=== PATIENT | female | born 1960 | race African-American/Black ===

== ENCOUNTER 2020-02-22 17:33 | Emergency (ER) | payer MEDICARE, OTHER ==
[~2020-02-22] VITALS: Ht 160 cm; Wt 58.1 kg
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
--- NOTE | 2020-02-22 18:30 | NUR ---
xray at bedside
--- NOTE | 2020-02-22 18:58 | NUR ---
Urine collected via straight catheter using sterile technique, urine sent to lab. Patient refusing blood draw at this time. Dr. Zendejas made aware.
[2020-02-22 19:26] LABS: APPEARANCE,URINE Clear (CLEAR); BILIRUBIN,URINE Negative (NEGATIVE); BLOOD, URINE Trace-lysed Ery/uL (NEGATIVE); COLOR,URINE Yellow (YELLOW); KETONES,URINE Negative (NEGATIVE); LEUKOCYTE ESTERASE ,URINE Small (NEGATIVE); NITRITE, URINE Negative (NEGATIVE); PROTEIN,URINE Negative (NEGATIVE); UGLUCOSE Negative (NEGATIVE); UROBILINOGEN,URINE 0.2 EU/dL (0.2)
[2020-02-22 19:27] LABS: BACTERIA,URINE Few /HPF (None Seen)
[2020-02-22 19:28] LABS: SQUAMOUS EPITHELIAL CELL,UR Moderate /HPF (None Seen)
[2020-02-22] MEDS ORDERED: NITROFURANTOIN/NITROFURAN MAC 100 MG CAPSULE PO ONE (20:30)
[2020-02-22] MEDS ORDERED: NITROFURANTOIN/NITROFURAN MAC 100 MG CAPSULE ONE (20:55)
--- NOTE | 2020-02-22 21:00 | NUR ---
PT REFUSED TO TAKE MEDICATION. PT DOES NOT WANT TO HAVE HER VITALS SIGNS TO BE TAKEN.
--- NOTE | 2020-02-22 21:12 | NUR ---
MD AT BEDSIDE TALKING TO PT
[2020-02-22] MEDS ORDERED: CEFTRIAXONE 1 G VIAL ONE (21:20)
[2020-02-22] MEDS ORDERED: LIDOCAINE /MPF 1% VIAL 5 ML VIAL ONE (21:20)
--- NOTE | 2020-02-22 21:26 | NUR ---
PTS DIAPER BEING CHANGED.
--- NOTE | 2020-02-22 21:26 | NUR ---
PT REQUESTED TO HAVE A ROCEPHIN SHOT INSTEAD OF MACROBID ORAL. MADE AWARE AND GAVE ORDER TO GIVE ROCEPHIN 1GM IM X 1 DOSE. DURING ADMINISTRATION, PT REUSED MEDICATION
[2020-02-22] MEDS ORDERED: CEFTRIAXONE 1 G VIAL IM ONE (21:30)
--- NOTE | 2020-02-22 21:31 | NUR ---
PT UNABLE TO SIGNED DISCHARGE AND HOMELESS WAIVER D/T PT IS BLIND. ACI AND ATB INSTRUCTION WAS GIVEN TO PT VERBALLY. PT VERBALIZED THAT SHE IS CURRENTLY AWAITING FOR HER PLACEMENT WHICH IS ALREADY ON GOING.
[2020-02-22 22:03] VITALS: BP 122/87
--- NOTE | 2020-02-22 22:05 | NUR ---
Patient discharged to home in stable condition. Written and verbal after care instructions given. Patient verbalizes understanding of instruction.
== END 2020-02-22 22:06 | disposition home or self-care (01) ==
LOC: ER 17:37
DX: G89.4 Chronic pain syndrome (principal); N39.0 Urinary tract infection, site not specified
CPT/HCPCS: 73600; 73630; 81001; 87077; 87086; 87186; 99284; J0696; J3490; 81000-TC